=== PATIENT | female | born 1965 | race Caucasian/White ===

== ENCOUNTER → 2018-04-07 | Outpatient (CLI) | payer BC ==
--- NOTE | 2018-04-07 10:42 | CT ---
EXAMINATION TYPE: CT ankle RT wo con DATE OF EXAM: 04/07/2018 COMPARISON: Ankle images 08-02 INDICATION: Rt ankle pain DLP: 200 mGycm, Automated exposure control for dose reduction was used. CONTRAST: None CT of the right ankle is performed in the axial plane at 3 mm thick sections. Reconstructed images in the coronal and sagittal plane are reviewed. FINDINGS: There is a subchondral cyst at the medial talus. The ankle mortise appears intact. There is beam hardening artifact from prior open reduction internal fixation of a fibular fracture. There is a small linear calcification posterior to the distal tibia. A small avulsion should be consi dered. Small calcification is inferior to the distal tibia posteriorly. Small avulsion from the dista l tibia may be present at this location. Osseous talus is present. Small metallic plate is adjacent to the metaphyseal distal fibula. IMPRESSIONS: 1. Small osseous densities are inferior and posterior to the tibia could be small avulsions. Correl ate with the patient's history and location of pain. 2. Old open reduction internal fixation changes. 3. Subchondral cyst within the superior medial talus. Inferior medial malleolar cyst may also be pres ent.
== END | disposition home or self-care (01) ==
LOC: RADCTMAIN 07:20
PROVIDERS: ATTEND Orthopaedic Surgery
DX: M85.671 Other cyst of bone, right ankle and foot (principal); M85.871 Other specified disorders of bone density and structure, right ankle and foot; Z98.890 Other specified postprocedural states

== ENCOUNTER 2018-05-09 08:58 | Emergency (ER) | payer BC ==
[2018-05-09 09:08] VITALS: BP 146/81; PULSE 94; RESP 18; TEMP 98.3
--- NOTE | 2018-05-09 09:35 | ED ---
General Adult HPI - General Chief complaint: Extremity Injury, Lower Stated complaint: infected stitches on ankle Time Seen by Provider: 05/09/18 09:15 Source: patient, family, RN notes reviewed Mode of arrival: wheelchair Limitations: no limitations - History of Present Illness Initial comments: Patient is a pleasant 53-year-old female presenting to the emergency department with concern for erythema near her suture/incision area. Patient did have history of previous fracture of her right ankle. Patient did have one year removed 11 days ago by orthopedics, Dr. Escalante. Patient noticed over the past 24 hours increased discomfort and irritation and some redness of the right medial ankle where she does have sutures placed. Patient states she does have a follow-up on Thursday plan for suture removal at that time. No fevers. - Related Data Home Medications Medication Instructions Recorded Confirmed Ascorbic Acid [Vitamin C] 500 mg PO DAILY 08/02/17 08/02/17 Cyanocobalamin (Vitamin B-12) 1,000 mcg PO DAILY 08/02/17 08/02/17 [Vitamin B-12] [place]-3 Fatty Acids/Fish Oil [Fish 1 cap PO DAILY 08/02/17 08/02/17 Oil 1,000 mg Softgel] Previous Rx's Medication Instructions Recorded Cefadroxil [Duricef] 500 mg PO Q12HR #14 cap 08/03/17 HYDROcodone/APAP 5-325MG [Hooper 1 - 2 each PO Q4-6H PRN #90 tab 08/03/17 5-325] Sennosides-Docusate Sodium 1 tab PO BID #60 tablet 08/03/17 [Senokot-S] traMADol HCL [Ultram] 50 mg PO Q6HR PRN #60 tab 08/04/17 Cephalexin [Keflex] 500 mg PO QID #40 cap 05/09/18 Allergies Allergy/AdvReac Type Severity Reaction Status Date / Time codeine Allergy Anaphylaxis Verified 05/09/18 09:05 Review of Systems ROS Statement: Those systems with pertinent positive or pertinent negative responses have been documented in the HPI. Constitutional: Denies: fever, chills Respiratory: Denies: cough, dyspnea Cardiovascular: Denies: chest pain Endocrine: Denies: fatigue Genitourinary: Denies: dysuria Skin: Reports: rash Neurological: Denies: weakness Past Medical History Past Medical History: No Reported History History of Any Multi-Drug Resistant Organisms: None Reported Past Surgical History: Appendectomy, Section, Orthopedic Surgery Additional Past Surgical History / Comment(s): knee surg , R ankle Past Psychological History: No Psychological Hx Reported Smoking Status: Never smoker Past Alcohol Use History: Rare Past Drug Use History: None Reported General Exam Limitations: no limitations General appearance: alert, in no apparent distress Head exam: Present: atraumatic Respiratory exam: Present: normal lung sounds bilaterally Cardiovascular Exam: Present: regular rate, normal rhythm Extremities exam: Present: other (Right medial ankle with area of incision approximately 3 cm. There are [address] There is mild erythema on the superior port extending close to 1 cm. This is tender. No discharge.) Neurological exam: Present: alert Psychiatric exam: Present: normal affect, normal mood Skin exam: Present: erythema Course Vital Signs 05/09/18 09:05 Temperature 98.3 F Pulse Rate 94 Respiratory 18 Rate Blood Pressure 146/81 O2 Sat by Pulse 97 Oximetry - Reevaluation(s) Reevaluation #1: 05/09/18 09:30 3 Sutures were removed from the incision near the medial malleolus. Disposition Clinical Impression: Incisional infection Disposition: HOME SELF-CARE Condition: Stable Instructions: Cellulitis (ED) Additional Instructions: Please follow-up with Dr. Escalante Thursday as scheduled. Return for fever, increased redness, increased swelling, increased pain, discharge or drainage, worsening symptoms or any other concerns. Twice daily wash area gently with soap and water, apply antibiotic ointment, and bandage. Prescriptions: Cephalexin [Keflex] 500 mg PO QID #40 cap Is patient prescribed a controlled substance at d/c from ED?: No Referrals: Tru Gandhi MD [Primary Care Provider] - 1-2 days Mitch Escalante MD [Medical Doctor] - 1-2 days Time of Disposition: 09:34
== END 2018-05-09 09:43 | disposition home or self-care (01) ==
LOC: EC 08:58
DX: T81.4XXA Infection following a procedure, initial encounter (principal); Z88.5 Allergy status to narcotic agent
CPT/HCPCS: 99282

== ENCOUNTER 2021-02-27 10:26 | Emergency (ER) | payer BC ==
[2021-02-27 10:32] VITALS: TEMP 98
[2021-02-27 10:51] LABS: Glucose,Whole Blood 370 mg/dL (75-99)
[2021-02-27] MEDS ORDERED: SODIUM CHLORIDE 0.9% 1,000 ML IV STA (10:58)
--- NOTE | 2021-02-27 11:08 | ED ---
Recheck HPI - General Chief Complaint: Recheck/Abnormal Lab/Rx Stated Complaint: High Blood Sugar Time Seen by Provider: 02/27/21 10:33 Source: patient Mode of arrival: ambulatory Limitations: no limitations - History of Present Illness Initial Comments: Patient is a 55-year-old female presenting to the emergency Department with complaints of not feeling well for about a week now. She states she sometimes feels shaky and just fatigued. She thought it was because of her stressful job. Her parents have a glucose monitor and checked her sugar about a week ago and noticed it was in the upper 200s. They have been monitoring over the last couple days and it has remained high. She states she took it today and it was almost 400 so she called her doctor who recommended coming into the ER for evaluation. She has no history of diabetes, currently takes no medications, only vitamins. She denies any chest pain or shortness of breath, no abdominal pain, no nausea or vomiting, no dysuria or frequency. She denies any increase in thirst, she states she does drink a lot of water throughout the day. She has no further complaints at this time. Upon arrival to the ER, her vitals are within normal limits. - Related Data Home Medications Medication Instructions Recorded Confirmed [place]-3 Fatty Acids/Fish Oil [Fish 1 cap PO HS 08/02/17 02/27/21 Oil 1,000 mg Softgel] Cholecalciferol [Vitamin D3 (25 50 mcg PO HS 02/27/21 02/27/21 Mcg = 1000 Iu)] Multivitamins, Thera [Multivitamin 1 tab PO HS 02/27/21 02/27/21 (formulary)] Previous Rx's Medication Instructions Recorded Fluconazole [Diflucan] 150 mg PO ONCE #2 tab 02/27/21 metFORMIN HCL ER [Glucophage Xr] 1,000 mg PO PC-SUPPER #60 tab 02/27/21 Allergies Allergy/AdvReac Type Severity Reaction Status Date / Time codeine Allergy Anaphylaxis Verified 02/27/21 12:07 Review of Systems ROS Statement: Those systems with pertinent positive or pertinent negative responses have been documented in the HPI. ROS Other: All systems not noted in ROS Statement are negative. Past Medical History Past Medical History: No Reported History History of Any Multi-Drug Resistant Organisms: None Reported Past Surgical History: Appendectomy, Section, Orthopedic Surgery Additional Past Surgical History / Comment(s): knee surg , R ankle Past Psychological History: No Psychological Hx Reported Smoking Status: Never smoker Past Alcohol Use History: None Reported Past Drug Use History: None Reported General Exam - General Exam Comments Initial Comments: GENERAL: Patient is well-developed and well-nourished. Patient is nontoxic and in no acute distress. HEAD: Atraumatic, normocephalic. EYES: Pupils equal round and reactive to light, extraocular movements intact, sclera anicteric, conjunctiva are normal. Eyelids were unremarkable. ENT: Nares patent, oropharynx clear without exudates. Moist mucous membranes. NECK: Normal range of motion, supple without lymphadenopathy or JVD. LUNGS: Unlabored respirations. Breath sounds clear to auscultation bilaterally and equal. No wheezes rales or rhonchi. HEART: Regular rate and rhythm without murmurs, rubs or gallops. ABDOMEN: Soft, nontender, normoactive bowel sounds. No guarding, no rebound. No masses appreciated. MUSCULOSKELETAL: Normal extremities with adequate strength and normal range of motion, no pitting or edema. No clubbing or cyanosis. NEUROLOGICAL: Patient is alert and oriented x 3. Normal speech, normal gait. SKIN: Warm, Dry, normal turgor, no rashes or lesions noted. Limitations: no limitations Course Vital Signs 02/27/21 02/27/21 10:29 13:20 Temperature 98 F Pulse Rate 100 86 Respiratory 18 16 Rate Blood Pressure 164/80 149/79 O2 Sat by Pulse 98 99 Oximetry Medical Decision Making - Medical Decision Making Patient is a 55-year-old female here with not feeling well over the past week and elevated glucose levels at home. She is no history of diabetes, currently takes no medications. Her vital signs are stable, she has no other specific complaints today. Initial blood glucose is 370, blood work shows 361, after 1 L it dropped to 308. Rest of lab work is within normal limits. Urine shows 4+ glucose, 1+ ketone. Patient was given 6 units of insulin, the glucose dropped to 77.. I spoke with her PCP who is agreeable to starting patient on metformin 1 g daily. She does have an appointment with him in 3 weeks. I did order an A1c today, this is pending. Patient is in agreement with this plan of care and is stable for discharge. Case discussed with Dr. Gannon. - Lab Data Result diagrams: 02/27/21 10:55 02/27/21 10:55 Lab Results 02/27/21 02/27/21 02/27/21 Range/Units 10:44 10:55 10:55 WBC 7.2 (3.8-10.6) k/uL RBC 5.44 H (3.80-5.40) m/uL Hgb 15.3 (11.4-16.0) gm/dL Hct 44.2 (34.0-46.0) % MCV 81.3 (80.0-100.0) fL MCH 28.1 (25.0-35.0) pg MCHC 34.6 (31.0-37.0) g/dL RDW 12.6 (11.5-15.5) % Plt Count 330 (150-450) k/uL MPV 6.9 Neutrophils % 70 % Lymphocytes % 20 % Monocytes % 5 % Eosinophils % 3 % Basophils % 1 % Neutrophils # 5.0 (1.3-7.7) k/uL Lymphocytes # 1.5 (1.0-4.8) k/uL Monocytes # 0.3 (0-1.0) k/uL Eosinophils # 0.2 (0-0.7) k/uL Basophils # 0.1 (0-0.2) k/uL Sodium (137-145) mmol/L Potassium (3.5-5.1) mmol/L Chloride (98-107) mmol/L Carbon Dioxide (22-30) mmol/L Anion Gap mmol/L BUN (7-17) mg/dL Creatinine (0.52-1.04) mg/dL Est GFR (CKD-EPI)AfAm (>60 ml/min/1.73 sqM) Est GFR (CKD-EPI)NonAf (>60 ml/min/1.73 sqM) Glucose (74-99) mg/dL POC Glucose (mg/dL) 370 H (75-99) mg/dL POC Glu Ore Storage Drier ID [place], Daja Calcium (8.4-10.2) mg/dL Total Bilirubin (0.2-1.3) mg/dL AST (14-36) U/L ALT (4-34) U/L Alkaline Phosphatase (38-126) U/L Total Protein (6.3-8.2) g/dL Albumin (3.5-5.0) g/dL TSH (0.465-4.680) mIU/L Urine Color Light Yellow Urine Appearance Clear (Clear) Urine pH 6.0 (5.0-8.0) Ur Specific [place] 1.025 (1.001-1.035) Urine Protein Negative (Negative) Urine Glucose (UA) 4+ H (Negative) Urine Ketones 1+ H (Negative) Urine Blood Negative (Negative) Urine Nitrite Negative (Negative) Urine Bilirubin Negative (Negative) Urine Urobilinogen <2.0 (<2.0) mg/dL Ur Leukocyte Esterase Negative (Negative) 02/27/21 02/27/21 02/27/21 Range/Units 10:55 11:54 13:14 WBC (3.8-10.6) k/uL RBC (3.80-5.40) m/uL Hgb (11.4-16.0) gm/dL Hct (34.0-46.0) % MCV (80.0-100.0) fL MCH (25.0-35.0) pg MCHC (31.0-37.0) g/dL RDW (11.5-15.5) % Plt Count (150-450) k/uL MPV Neutrophils % % Lymphocytes % % Monocytes % % Eosinophils % % Basophils % % Neutrophils # (1.3-7.7) k/uL Lymphocytes # (1.0-4.8) k/uL Monocytes # (0-1.0) k/uL Eosinophils # (0-0.7) k/uL Basophils # (0-0.2) k/uL Sodium 137 (137-145) mmol/L Potassium 4.8 (3.5-5.1) mmol/L Chloride 99 (98-107) mmol/L Carbon Dioxide 26 (22-30) mmol/L Anion Gap 12 mmol/L BUN 18 H (7-17) mg/dL Creatinine 0.68 (0.52-1.04) mg/dL Est GFR (CKD-EPI)AfAm >90 (>60 ml/min/1.73 sqM) Est GFR (CKD-EPI)NonAf >90 (>60 ml/min/1.73 sqM) Glucose 361 H (74-99) mg/dL POC Glucose (mg/dL) 308 H 277 H (75-99) mg/dL POC Glu Ore Storage Drier ID Daja Palacio Kayla Calcium 10.2 (8.4-10.2) mg/dL Total Bilirubin 0.6 (0.2-1.3) mg/dL AST 34 (14-36) U/L ALT 39 H (4-34) U/L Alkaline Phosphatase 149 H (38-126) U/L Total Protein 7.3 (6.3-8.2) g/dL Albumin 4.8 (3.5-5.0) g/dL TSH 2.430 (0.465-4.680) mIU/L Urine Color Urine Appearance (Clear) Urine pH (5.0-8.0) Ur Specific [place] (1.001-1.035) Urine Protein (Negative) Urine Glucose (UA) (Negative) Urine Ketones (Negative) Urine Blood (Negative) Urine Nitrite (Negative) Urine Bilirubin (Negative) Urine Urobilinogen (<2.0) mg/dL Ur Leukocyte Esterase (Negative) Disposition Clinical Impression: Type 2 diabetes mellitus Disposition: HOME SELF-CARE Condition: Stable Instructions (If sedation given, give patient instructions): Type 2 Diabetes in Adults: New Diagnosis (DC) Additional Instructions: Please return to the Emergency Department if symptoms worsen or any other concerns. Please take metformin as prescribed. Please follow up with your PCP as already discussed. Prescriptions: Fluconazole [Diflucan] 150 mg PO ONCE #2 tab metFORMIN HCL ER [Glucophage Xr] 1,000 mg PO PC-SUPPER #60 tab Is patient prescribed a controlled substance at d/c from ED?: No Referrals: Tru Gandhi MD [Primary Care Provider] - 1-2 days Time of Disposition: 12:50
[2021-02-27 11:24] LABS: Basophils # (A) 0.1 k/uL (0-0.2); Basophils % (A) 1 %; Eosinophils # (A) 0.2 k/uL (0-0.7); Eosinophils % (A) 3 %; HCT 44.2 % (34.0-46.0); HGB 15.3 gm/dL (11.4-16.0); Lymphocytes # (A) 1.5 k/uL (1.0-4.8); Lymphocytes % (A) 20 %; MCH 28.1 pg (25.0-35.0); MCHC 34.6 g/dL (31.0-37.0); MCV 81.3 fL (80.0-100.0); Mean Platelet Volume 6.9; Monocytes # (A) 0.3 k/uL (0-1.0); Monocytes % (A) 5 %; Neutrophils % (A) 70 %; Platelet Count 330 k/uL (150-450); RBC 5.44 m/uL (3.80-5.40); RDW 12.6 % (11.5-15.5); WBC 7.2 k/uL (3.8-10.6)
[2021-02-27 11:37] LABS: Appearance,Urine Clear (Clear); Bilirubin,Urine Negative (Negative); Blood,Urine Negative (Negative); Color,Urine Light Yellow; Glucose,Urine (UA) 4+ (Negative); Ketones,Urine 1+ (Negative); Leukocyte Esterase,Urine Negative (Negative); Nitrite,Urine Negative (Negative); Protein,Urine Negative (Negative); Specific Gravity,Urine 1.025 (1.001-1.035); Urobilinogen,Urine <2.0 mg/dL (<2.0)
[2021-02-27 11:39] LABS: ALT 39 U/L (4-34); AST 34 U/L (14-36); African American GFR (CKD) >90 (>60 ml/min/1.73 sqM); Albumin 4.8 g/dL (3.5-5.0); Alkaline Phosphatase 149 U/L (38-126); Anion Gap 12 mmol/L; Blood Urea Nitrogen 18 mg/dL (7-17); Calcium 10.2 mg/dL (8.4-10.2); Carbon Dioxide 26 mmol/L (22-30); Chloride 99 mmol/L (98-107); Glucose 361 mg/dL (74-99); Non-African American GFR(CKD) >90 (>60 ml/min/1.73 sqM); Potassium 4.8 mmol/L (3.5-5.1); Sodium 137 mmol/L (137-145); Total Bilirubin 0.6 mg/dL (0.2-1.3); Total Protein 7.3 g/dL (6.3-8.2)
[2021-02-27 11:56] LABS: Glucose,Whole Blood 308 mg/dL (75-99)
[2021-02-27] MEDS ORDERED: INSULIN ASPART (NovoLOG) 100 UNIT/ML VIAL SQ ONE (12:10)
[2021-02-27 13:20] LABS: Glucose,Whole Blood 277 mg/dL (75-99)
[2021-02-27 13:25] VITALS: BP 149/79; PULSE 86; RESP 16
== END 2021-02-27 13:19 | disposition home or self-care (01) ==
LOC: EC 10:26
DX: E11.9 Type 2 diabetes mellitus without complications (principal); Z90.89 Acquired absence of other organs
CPT/HCPCS: 36415; 80053; 81003; 83036; 84443; 85025; 96361; 99284

== ENCOUNTER → 2021-05-09 | Outpatient (CLI) | payer BC ==
--- NOTE | 2021-05-10 12:04 | MM ---
Reason for exam: screening (asymptomatic). Last mammogram was performed 7 years and 2 months ago. History: Patient is postmenopausal and had first child at age 31. Family history of breast cancer in aunt at age 62. Reductions of both breasts, 2000. Took hormonal contraceptives for 1 year. Physical Findings: A clinical breast exam by your physician is recommended on an annual basis and results should be correlated with mammographic findings. MG 3D Screening Mammo W/Cad Bilateral CC and MLO view(s) were taken. Prior study comparison: February 21, 2014, bilateral MG screening mammo w CAD. The breast tissue is heterogeneously dense. This may lower the sensitivity of mammography. Finding #1: There is a 4 mm equal density (isodense), circumscribed oval mass in the upper outer quadrant of the left breast. Finding #2: There are typically benign calcifications in both breasts. ASSESSMENT: Incomplete: need additional imaging evaluation, BI-RAD 0 RECOMMENDATION: Special view mammogram of the left breast. If lesion persists on supplemental views, image directed ultrasound is recommended. [facility] will attempt to contact patient to return for supplemental views and ultrasound if indicated.
== END | disposition home or self-care (01) ==
LOC: RADMAMWWP 08:35
PROVIDERS: ATTEND Obstetrics & Gynecology
DX: Z12.31 Encounter for screening mammogram for malignant neoplasm of breast (principal); Z80.3 Family history of malignant neoplasm of breast; Z78.0 Asymptomatic menopausal state
CPT/HCPCS: 77063; 77067

== ENCOUNTER → 2021-05-21 | Outpatient (CLI) | payer BC ==
--- NOTE | 2021-05-22 08:27 | MM ---
Reason for exam: additional evaluation requested from abnormal screening. Last mammogram was performed less than 1 month ago. History: Patient is postmenopausal and had first child at age 31. Family history of breast cancer in aunt at age 62. Reductions of both breasts, 2000. Took hormonal contraceptives for 1 year. Physical Findings: Nurse did not find any significant physical abnormalities on exam. MG 3D Work Up W/Cad LT Spot compression CC, spot compression MLO, and ML view(s) were taken of the left breast. Prior study comparison: May 09, 2021, bilateral MG 3d screening mammo w/cad. February 21, 2014, bilateral MG screening mammo w CAD. March 26, 2009, right breast diagnostic digital lydia. The breast tissue is heterogeneously dense. This may lower the sensitivity of mammography. Tiny 4mm low density nodule is circumscribed at the 2 o'clock position. A benign etiology is favored. These results were verbally communicated with the patient and result sheet given to the patient on 05/21/21. ASSESSMENT: Probably benign, BI-RAD 3 RECOMMENDATION: Follow-up diagnostic mammogram of the left breast in 6 months.
== END | disposition home or self-care (01) ==
LOC: RADMAMWWP 14:47
PROVIDERS: ATTEND Obstetrics & Gynecology
DX: N63.21 Unspecified lump in the left breast, upper outer quadrant (principal); Z80.3 Family history of malignant neoplasm of breast
CPT/HCPCS: 77061; 77065

== ENCOUNTER → 2021-07-02 | Outpatient (CLI) | payer BC ==
--- NOTE | 2021-07-02 11:22 | BD ---
EXAMINATION TYPE: Axial Bone Density DATE OF EXAM: 07/02/2021 COMPARISON: 02.21.2014 CLINICAL HISTORY: 56 YR OLD FEMALE.....ICD-10 CODE: N95.1 POST MENOPAUSAL Height: 63 Weight: 158 FRAX RISK QUESTIONS: History of Fracture in Adulthood: YES Secondary Osteoporosis: YES 1. Type 1 Diabetes: YES RISK FACTORS HISTORY OF: YES ANKLE RT, 3 YRS AGO WITH SURGICAL REPAIR Active: YES Postmenopausal woman: YES, AT AGE 47 YRS OLD Hyperparathyroidism: NO Adrenal Insufficiency: NO MEDICATIONS: Additional Medications: METFORMIN, INSULIN 1 MO AGO, STATIN FOR CHOLESTEROL, VIT D, MULTIVITAMIN Additional History: DIABETIC, CHOLESTEROL, EXAM MEASUREMENTS: Bone mineral densitometry was performed using the [employer]pore[employer] System. Bone mineral density as measured about the Lumbar spine is: ----- L1-L4(G/cm2): 1.362 T Score Values are as follows: ----- L1: 0.9 ----- L2: 0.8 ----- L3: 1.8 ----- L4: 2.1 ----- L1-L4: 1.5 Bone mineral density has: Decreased -3.2% since study of: 02.21.2014 Bone mineral density about the R hip (g/cm2): 1.193 Bone mineral density about the L hip (g/cm2): 1.202 T Score values are as follows: -----R Neck: 0.4 -----L Neck: 0.6 -----R Total: 1.5 -----L Total: 1.5 Bone mineral density has: Decreased -5.3% since study of: 02.21.2014 FRAX%s: THERE IS A 9.6% CHANCE FOR A MAJOR OSTEOPOROTIC FX AND A 0.% FOR HIP......PROBABILITY FOR FX IN 10 YRS TIME IMPRESSION: Normal (Values between +1 and -1 indicate normal bone mass). Consider repeating this study in 5 year s or sooner if there is some new clinical indication. NOTE: T-SCORE=SD OF THE YOUNG ADULT MEAN.
== END | disposition home or self-care (01) ==
LOC: RADBDWWP 08:56
PROVIDERS: ATTEND Obstetrics & Gynecology
DX: Z78.0 Asymptomatic menopausal state (principal)
CPT/HCPCS: 77080

== ENCOUNTER → 2021-11-18 | Outpatient (CLI) | payer BC ==
--- NOTE | 2021-11-19 08:25 | MM ---
Reason for exam: follow-up at short interval from prior study. Last mammogram was performed 6 months ago. History: Patient is postmenopausal and had first child at age 31. Family history of breast cancer in aunt at age 62. Reductions of both breasts, 2000. Took hormonal contraceptives for 1 year. Physical Findings: A clinical breast exam by your physician is recommended on an annual basis and results should be correlated with mammographic findings. MG 3D Diag Mammo W/Cad LT CC and MLO view(s) were taken of the left breast. Prior study comparison: May 21, 2021, left breast MG 3d work up w/cad LT. May 09, 2021, bilateral MG 3d screening mammo w/cad. The breast tissue is heterogeneously dense. This may lower the sensitivity of mammography. Central upper outer quadrant low density circumscribed nodule remains unchanged. Return to routine screening. ASSESSMENT: Benign, BI-RAD 2 RECOMMENDATION: Return to routine screening mammogram schedule for both breasts.
== END | disposition home or self-care (01) ==
LOC: RADMAMWWP 08:09
PROVIDERS: ATTEND Obstetrics & Gynecology
DX: R92.8 Other abnormal and inconclusive findings on diagnostic imaging of breast (principal); Z78.0 Asymptomatic menopausal state; Z80.3 Family history of malignant neoplasm of breast
CPT/HCPCS: 77061; 77065

== ENCOUNTER → 2022-05-15 | Outpatient (CLI) | payer BC ==
--- NOTE | 2022-05-16 07:40 | MM ---
Reason for Exam: Screening (asymptomatic). Last screening mammogram was performed 12 month(s) ago. Patient History: Menarche at age 10. First Full-Term at age 31. Late child-bearing (after 30). Postmenopausal. Patient used Hormonal Contraceptives for 1 year. 2000, Bilateral Reduction. Maternal aunt had breast cancer, age 62. Risk Values: Elvia 5 year model risk: 1.9%. NCI Lifetime model risk: 10.2%. Prior Study Comparison: 05/09/2021 Bilateral Screening Mammogram, [facility]. 05/21/2021 Left Diagnostic Mammogram, [facility]. 11/18/2021 Left Diagnostic Mammogram, [facility]. Tissue Density: The breast tissue is heterogeneously dense. This may lower the sensitivity of mammography. Findings: Analyzed By CAD. There is no suspicious group of microcalcifications or new suspicious mass in either breast. Stable chronic nodularity within the left breast. Stable right breast benign appearing calcifications. No significant change from prior exams. Overall Assessment: Benign, BI-RAD 2 Management: Screening Mammogram of both breasts in 1 year. A clinical breast exam by your physician is recommended on an annual basis and results should be correlated with mammographic findings. Electronically signed and approved by: Marcos Stock D.O.
== END | disposition home or self-care (01) ==
LOC: RADMAMWWP 08:01
PROVIDERS: ATTEND Obstetrics & Gynecology
DX: Z12.31 Encounter for screening mammogram for malignant neoplasm of breast (principal)
CPT/HCPCS: 77063; 77067

== ENCOUNTER → 2023-06-29 | Outpatient (CLI) | payer BC ==
--- NOTE | 2023-06-30 18:34 | MM ---
Reason for Exam: Screening (asymptomatic). Last mammogram was performed 1 year(s) and 2 month(s) ago. Patient History: Menarche at age 10. First Full-Term at age 31. Late child-bearing (after 30). Postmenopausal. Patient used Hormonal Contraceptives for 1 year. 2000, Bilateral Reduction. Maternal aunt had breast cancer, age 62. Risk Values: Elvia 5 year model risk: 2.0%. NCI Lifetime model risk: 10.0%. Prior Study Comparison: 05/21/2021 Left Diagnostic Mammogram, [facility]. 11/18/2021 Left Diagnostic Mammogram, [facility]. 05/15/2022 Bilateral MG 3D screening mammo w/cad, [facility]. Tissue Density: The breast tissue is heterogeneously dense. This may lower the sensitivity of mammography. Findings: Analyzed By CAD. Unchanged grouped microcalcifications anteriorly on the right. There is no suspicious group of microcalcifications or new suspicious mass in either breast. Overall Assessment: Benign, BI-RAD 2 Management: Screening Mammogram of both breasts in 1 year. . Patient should continue monthly self-breast exams. A clinical breast exam by your physician is recommended on an annual basis. This exam should not preclude additional follow-up of suspicious palpable abnormalities. Note on Elvia scores and lifetime risk: 1. A Elvia score greater than 3% is considered moderate risk. If this is the case, consider specialist referral to assess eligibility for a risk reducing agent. 2. If overall lifetime risk for the development of breast cancer is 20% or higher, the patient may qualify for future screening with alternating mammogram and breast MRI. Electronically signed and approved by: Dm Morris M.D. Radiologist
== END | disposition home or self-care (01) ==
LOC: RADMAMWWP 12:11
PROVIDERS: ATTEND Obstetrics & Gynecology
DX: Z12.31 Encounter for screening mammogram for malignant neoplasm of breast (principal); Z78.0 Asymptomatic menopausal state; Z80.3 Family history of malignant neoplasm of breast
CPT/HCPCS: 77063; 77067

== ENCOUNTER → 2024-06-30 | Outpatient (CLI) | payer BC ==
--- NOTE | 2024-07-07 13:13 | MM ---
Reason for Exam: Screening (asymptomatic). Last screening mammogram was performed 12 month(s) ago. Patient History: Menarche at age 10. First Full-Term at age 31. Late child-bearing (after 30). Postmenopausal. Patient used Hormonal Contraceptives for 1 year. 2000, Bilateral Reduction. Maternal aunt had breast cancer, age 62. Risk Values: Elvia 5 year model risk: 2.0%. NCI Lifetime model risk: 9.7%. Prior Study Comparison: 11/18/2021 Left Diagnostic Mammogram, [facility]. 05/15/2022 Bilateral MG 3D screening mammo w/cad, [facility]. 06/29/2023 Bilateral MG 3D screening mammo w/cad, [facility]. Tissue Density: The breasts are heterogeneously dense, which may obscure small masses. Findings: Analyzed By CAD. Right breast: There is no suspicious group of microcalcifications or new suspicious mass. Left breast: There is no suspicious group of microcalcifications or new suspicious mass. Overall Assessment: Negative, BI-RAD 1 Management: Screening Mammogram of both breasts in [address] [facility] will attempt to contact patient to return for supplemental views and ultrasound if indicated. Patient should continue monthly self-breast exams. A clinical breast exam by your physician is recommended on an annual basis. This exam should not preclude additional follow-up of suspicious palpable abnormalities. Note on Elvia scores and lifetime risk: 1. A Elvia score greater than 3% is considered moderate risk. If this is the case, consider specialist referral to assess eligibility for a risk reducing agent. 2. If overall lifetime risk for the development of breast cancer is 20% or higher, the patient may qualify for future screening with alternating mammogram and breast MRI. [facility], , 07/07/2024 12:55 PM. Electronically signed and approved by: Fabien Mcdonough DO
== END | disposition home or self-care (01) ==
LOC: RADMAMWWP 08:02
PROVIDERS: ATTEND Family Medicine
DX: Z12.31 Encounter for screening mammogram for malignant neoplasm of breast (principal); R92.333 Mammographic heterogeneous density, bilateral breasts; Z78.0 Asymptomatic menopausal state; Z80.3 Family history of malignant neoplasm of breast; Z92.0 Personal history of contraception
CPT/HCPCS: 77063; 77067